=== PATIENT | female | born 1950 | race Caucasian/White ===

== ENCOUNTER 2025-03-26 14:52 | Inpatient (IN) | payer MEDICARE ==
[2025-03-26] MEDS ORDERED: Glucagon 1 MG/ML KIT IM PRN (16:22)
[2025-03-26] MEDS ORDERED: Dextrose 50% Abboject 50 ML SYRINGE SLOW IVP PRN (16:22)
[2025-03-26] MEDS ORDERED: Benzonatate 100 MG CAP PO PRN (18:43)
[2025-03-26] MEDS: PNEUMOC 20-VAL CONJ-DIP CRM/PF 0.5 ML SYRINGE IM ONE (19:28)
[2025-03-26] MEDS: Senokot S 8.6-50 MG TAB PO SCH (19:28)
[2025-03-26] MEDS: metFORMIN XR 500 MG ER.TAB PO SCH (19:32)
[2025-03-26] MEDS: Famotidine 20 MG TAB PO SCH (22:00)
[2025-03-27 05:53] LABS: #Basophils 0.1 thou/uL (0.0-0.2); #Eosinophils 0.2 thou/uL (0.0-0.7); #Lymphocytes 3.1 thou/uL (1.20-3.40); #Monocytes 1.0 thou/uL (0.11-0.59); #Neutrophils 5.7 thou/uL (1.40-6.50); %Basophils 1.2 % (0.0-1.0); %Eosinophils 2.1 % (0.0-10.0); %Lymphocytes 30.4 % (21.0-51.0); %Monocytes 10.1 % (0.0-10.0); %Neutrophils 56.1 % (42.0-75.0); Hematocrit 31.2 % (36.0-47.0); Hemoglobin 10.7 g/dL (12.0-16.0); Mean Corpuscular Hemoglobin 28.8 pg (27.0-31.0); Mean Corpuscular Volume 84.2 fl (78.0-98.0); Platelet Count 287 10x3/uL (130-400); Red Blood Cell (RBC) Count 3.70 mill/uL (4.20-5.40); White Blood Cell (WBC) Count 10.1 10x3/uL (4.8-10.8)
[2025-03-27 06:07] LABS: ALT (SGPT) 14 U/L (Less than 34); AST (SGOT) 29 U/L (11-34); Albumin 2.9 g/dL (3.1-4.5); Alkaline Phosphatase 52 U/L (40-110); Anion Gap 16 mmol/L (10-20); BUN (Urea Nitrogen) 12 mg/dL (9.8-20.1); Bilirubin, Total 0.7 mg/dL (0.3-1.2); Calc. Creatinine Clearance 111 mL/min (70-130); Calcium 8.5 mg/dL (7.8-10.44); Carbon Dioxide 21 mmol/L (23-31); Chloride 95 mmol/L (98-107); Globulin 3.2 g/dL (2.4-3.5); Glucose 124 mg/dL (83-110); Potassium 3.5 mmol/L (3.5-5.1); Sodium 128 mmol/L (136-145)
[2025-03-27] MEDS: Cholecalciferol 1,000 UNITS (25 MCG) TAB PO SCH (08:58)
[2025-03-27] MEDS: Aspirin 81 mg Enteric Coated Tablet PO SCH (08:58)
[2025-03-27] MEDS: Enoxaparin 40 MG (0.4 mL) SYRINGE SC SCH (08:59)
[2025-03-27] MEDS: Calcium Carbonate 600 MG + Vit D TAB PO SCH (08:59)
[2025-03-27] MEDS: Multivitamin w/Zinc Stress 1 TAB PO SCH (08:59)
[2025-03-27] MEDS: BuPROPion XL 150 MG ER.TAB PO SCH (08:59)
[2025-03-27] MEDS: Floranex 1 GM Packet PO SCH (08:59)
[2025-03-27] MEDS: Losartan 50 MG TAB PO SCH (08:59)
[2025-03-27] MEDS: Acetaminophen 325 MG TAB PO PRN (21:15)
[2025-03-30 05:30] LABS: #Basophils 0.1 thou/uL (0.0-0.2); #Eosinophils 0.3 thou/uL (0.0-0.7); #Lymphocytes 3.4 thou/uL (1.20-3.40); #Monocytes 0.8 thou/uL (0.11-0.59); #Neutrophils 3.9 thou/uL (1.40-6.50); %Basophils 1.4 % (0.0-1.0); %Eosinophils 3.6 % (0.0-10.0); %Lymphocytes 39.6 % (21.0-51.0); %Monocytes 9.7 % (0.0-10.0); %Neutrophils 45.8 % (42.0-75.0); Hematocrit 30.8 % (36.0-47.0); Hemoglobin 10.5 g/dL (12.0-16.0); Mean Corpuscular Hemoglobin 28.9 pg (27.0-31.0); Mean Corpuscular Volume 85.0 fl (78.0-98.0); Platelet Count 403 10x3/uL (130-400); Red Blood Cell (RBC) Count 3.62 mill/uL (4.20-5.40); White Blood Cell (WBC) Count 8.5 10x3/uL (4.8-10.8)
[2025-03-30 05:42] LABS: Anion Gap 15 mmol/L (10-20); BUN (Urea Nitrogen) 18 mg/dL (9.8-20.1); Calc. Creatinine Clearance 101 mL/min (70-130); Calcium 8.7 mg/dL (7.8-10.44); Carbon Dioxide 24 mmol/L (23-31); Chloride 104 mmol/L (98-107); Glucose 120 mg/dL (83-110); Potassium 3.5 mmol/L (3.5-5.1); Sodium 139 mmol/L (136-145)
[2025-04-01 08:35] VITALS: BMI 34.8
[2025-04-01] MEDS: Methocarbamol 500 MG TAB PO PRN (20:38)
[2025-04-06 04:09] VITALS: BMI 35.2
[2025-04-06 07:46] VITALS: BP 112/68; TEMP 97.8
== END 2025-04-06 10:45 | disposition home or self-care (01) | DRG 560 ==
LOC: NAV ACUTE 16:45
PROVIDERS: ADMIT Family Medicine; ATTEND Family Medicine
PROC: F07Z5ZZ Bed Mobility Treatment (ICD-10-PCS; principal; 2025-03-27)
PROC: F08Z0ZZ Bathing/Showering Techniques Treatment (ICD-10-PCS; 2025-03-27)
DX: S72.92XG Unspecified fracture of left femur, subsequent encounter for closed fracture with delayed healing (principal); E87.1 Hypo-osmolality and hyponatremia; R53.81 Other malaise; I10 Essential (primary) hypertension; E11.9 Type 2 diabetes mellitus without complications; F41.9 Anxiety disorder, unspecified; Z98.890 Other specified postprocedural states; Z90.49 Acquired absence of other specified parts of digestive tract; Z86.73 Personal history of transient ischemic attack (TIA), and cerebral infarction without residual deficits; E78.5 Hyperlipidemia, unspecified; E03.9 Hypothyroidism, unspecified; F32.9 Major depressive disorder, single episode, unspecified; Z79.899 Other long term (current) drug therapy; Z79.890 Hormone replacement therapy; Z79.84 Long term (current) use of oral hypoglycemic drugs; Z79.82 Long term (current) use of aspirin
CPT/HCPCS: 36415; 36416; 80048; 80053; 85025; J1650; J1815